=== PATIENT | female | born 1965 | race Caucasian/White ===

== ENCOUNTER 2017-06-20 17:14 | Emergency (ER) | payer OTHER ==
--- NOTE | 2017-06-20 18:29 | EDM.PDOC ---
ED HPI GENERAL MEDICAL PROBLEM - General Chief Complaint: Respiratory Problem Stated Complaint: PT HAS CONGESTION Time Seen by Provider: 06/20/17 18:20 Source of Information: Reports: Patient History Limitations: Reports: No Limitations - History of Present Illness INITIAL COMMENTS - FREE TEXT/NARRATIVE: HISTORY AND PHYSICAL: []52-year-old female presenting with cough for the last several weeks History of Present Illness: []Has worsened over the last few days Review of Systems: As per history of present illness and below otherwise all systems reviewed and negative. Past medical history: As per history of present illness and as reviewed below otherwise noncontributory. Surgical history: As per history of present illness and as reviewed below otherwise noncontributory. Social history: No reported history of drug or alcohol abuse. Family history: As per history of present illness and as reviewed below otherwise noncontributory. Physical exam: Alert and oriented female answering questions appropriately using full sentences but is a little short of breath and has coughing after speaking a long time HEENT: Atraumatic, normocehpalic, pupils reactive, negative for conjunctival pallor or scleral icterus, mucous membranes moist, throat clear, neck supple, nontender, trachea midline. Lungs: Crackles on auscultation, breath sounds equal bilaterally, chest non tender. Cough with deep breath. Heart: S1S2, regular, negative for clicks, rubs, or JVD. Abdomen: Soft, nondistended, nontender. Negative for masses or hepatossplenmegaly. Negative for costovertebral tenderness. Pelvis: Stable nontender. Genitourinary: Deferred. Rectal: Deferred Extremities: Atraumatic, negative for cords or calf pain. Neurovascular unremarkable. Neuro: Awake, alert, oriented. Cranial nerves II through XII unremarkable. Cerebellum unremarkable. Motor and sensory unremarkable throughout. Exam nonfocal. Discussed with patient that her negative examination and labs x-ray would indicate viral infection with bronchitis Diagnostics: [cbc, cmp, influenza chest x-ray] Therapeutics: [] Impression: [Acute bronchitis] Plan: [Discharged to home Symptomatic cares have been reviewed Lizbeth Diaz] Definitive disposition and diagnosis as appropriate pending reevaluation and review of above. Onset: Gradual Duration: Week(s): (4) Location: Reports: Head, Chest lungs Pain Score (Numeric/FACES): 10 - Related Data Allergies Allergy/AdvReac Type Severity Reaction Status Date / Time No Known Allergies Allergy Verified 06/20/17 17:54 Home Meds: Home Meds Benzonatate [Tessalon Perle] 100 mg PO QID PRN #40 capsule 06/20/17 [Rx] methylPREDNISolone [Medrol] 4 mg PO ASDIRECTED #1 dosepk 06/20/17 [Rx] Past Medical History - Past Health History Medical/Surgical History: Denies Medical/Surgical History - Infectious Disease History Infectious Disease History: Reports: Chicken Pox Social & Family History - Tobacco Use Smoking Status *Q: Never Smoker Second Hand Smoke Exposure: No - Caffeine Use Caffeine Use: Reports: None - Recreational Drug Use Recreational Drug Use: No ED ROS GENERAL - Review of Systems Review Of Systems: ROS reveals no pertinent complaints other than HPI. ED EXAM, GENERAL - Physical Exam Exam: See Below (See dictation) Course - Vital Signs Last Recorded V/S: Last Vital Signs Temp 36.4 C 06/20/17 18:00 Pulse 86 06/20/17 18:00 Resp 18 06/20/17 18:00 BP 133/73 06/20/17 18:00 Pulse Ox 96 06/20/17 18:00 - Orders/Labs/Meds Orders: Active Orders 24 hr Category Date Time Status Chest 2V [CR] Stat Exams 06/20/17 18:30 Taken Labs: Laboratory Tests 06/20/17 06/20/17 Range/Units 18:45 18:45 WBC 6.32 (4.0-11.0) K/uL RBC 4.60 (4.30-5.90) M/uL Hgb 13.9 (12.0-16.0) g/dL Hct 40.9 (36.0-46.0) % MCV 88.9 (80.0-98.0) fL MCH 30.2 (27.0-32.0) pg MCHC 34.0 (31.0-37.0) g/dL RDW Std Deviation 39.7 (28.0-62.0) fl RDW Coeff of Sylvia 12 (11.0-15.0) % Plt Count 209 (150-400) K/uL MPV 9.70 (7.40-12.00) fL Neut % (Auto) 59.8 (48.0-80.0) % Lymph % (Auto) 25.8 (16.0-40.0) % [place] % (Auto) 10.6 (0.0-15.0) % Eos % (Auto) 3.2 (0.0-7.0) % Baso % (Auto) 0.6 (0.0-1.5) % Neut # (Auto) 3.8 (1.4-5.7) K/uL Lymph # (Auto) 1.6 (0.6-2.4) K/uL [place] # (Auto) 0.7 (0.0-0.8) K/uL Eos # (Auto) 0.2 (0.0-0.7) K/uL Baso # (Auto) 0.0 (0.0-0.1) K/uL Nucleated RBC % 0.0 /100WBC Nucleated RBCs # 0 K/uL Sodium 139 (136-146) mmol/L Potassium 3.7 (3.5-5.1) mmol/L Chloride 106 (98-110) mmol/L Carbon Dioxide 23 (21-31) mmol/L BUN 12 (6.0-23.0) mg/dL Creatinine 0.8 (0.6-1.5) mg/dL Est Cr Clr Drug Dosing 71.84 mL/min Estimated GFR (MDRD) > 60.0 ml/min Glucose 96 (60-110) mg/dL Calcium 9.1 (8.8-10.8) mg/dL Total Bilirubin 0.8 (0.1-1.5) mg/dL AST 28 (5-40) IU/L ALT 27 (8-54) IU/L Alkaline Phosphatase 94 (40-150) Total Protein 7.3 (6.0-8.0) g/dL Albumin 4.5 (3.5-5.0) g/dL Globulin 2.8 (2.0-3.5) g/dL Albumin/Globulin Ratio 1.6 (1.3-2.8) Departure - Departure Time of Disposition: 19:50 Disposition: Home, Self-Care 01 Condition: Good Clinical Impression: Bronchitis - Discharge Information Prescriptions: Benzonatate [Tessalon Perle] 100 mg PO QID PRN #40 capsule PRN Reason: Cough methylPREDNISolone [Medrol] 4 mg PO ASDIRECTED #1 dosepk Referrals: PCP,None [Primary Care Provider] - Forms: ED Department Discharge - My Orders Last 24 Hours: My Active Orders 06/20/17 18:30 Chest 2V [CR] Stat - Assessment/Plan Last 24 Hours: My Active Orders 06/20/17 18:30 Chest 2V [CR] Stat
[2017-06-20 19:30] LABS: CHLORIDE,CL 106 mmol/L (98-110); SODIUM,NA 139 mmol/L (136-146)
--- NOTE | 2017-06-22 15:36 | CR ---
EXAM DATE: 06/20/17 PATIENT'S AGE: 52 Patient: BERNICE NIEVES Facility: [place], [place] Site . Site : 1965 Study: XRay Chest [id number]/23/2018 7:00:14 PM Ordering Physician: Doctor Ulloa Final Report: INDICATION: Cough for 1 month. TECHNIQUE: Chest radiograph 2 views COMPARISON: None FINDINGS: Cardiovascular and mediastinum: The heart silhouette is normal in size and morphology. The mediastinum is normal in appearance. Lungs and pleural spaces: Both lungs are unremarkable in appearance. No sign of pleural effusion seen. No pneumothorax is identified. Bones and soft tissues: No significant findings. IMPRESSION: 1. No acute cardiopulmonary disease is seen. Dictated by Matthew Grajeda MD @ 06/20/2017 7:34:38 PM Dictated by: Matthew Grajeda MD @ 06/20/2017 19:34:46 (Electronic Signature) Report Signed by Proxy. IRIS
== END 2017-06-20 20:03 | disposition home or self-care (01) ==
LOC: MW.ED 17:14
DX: J20.9 Acute bronchitis, unspecified (principal)
CPT/HCPCS: 36415; 71046; 71046-26; 80053; 85025; 87804; 99283

== ENCOUNTER 2017-07-09 13:17 | Emergency (ER) | payer OTHER ==
[2017-07-09] MEDS ORDERED: Sodium Chloride 0.9% 10 ML Syringe FLUSH PRN (14:32)
[2017-07-09] MEDS ORDERED: Sodium Chloride 0.9% 2.5 ML Syringe FLUSH PRN (14:32)
[2017-07-09] MEDS ORDERED: Ondansetron 4 MG/2 ML SDV IVPUSH ONE (14:36)
[2017-07-09] MEDS ORDERED: Morphine 4 MG/ML Syringe IVPUSH ONE (14:36)
[2017-07-09 15:28] LABS: CHLORIDE,CL 110 mmol/L (98-110); SODIUM,NA 139 mmol/L (136-146)
[2017-07-09] MEDS ORDERED: Iopamidol 755 MG/ML 200 ML Multipack Bottle IVPUSH STA (16:12)
--- NOTE | 2017-07-09 16:32 | EDM.PDOC ---
ED HPI GENERAL MEDICAL PROBLEM - General Chief Complaint: Back Pain or Injury Stated Complaint: LOWER BACK PAIN Time Seen by Provider: 07/09/17 14:06 Source of Information: Reports: Patient History Limitations: Reports: No Limitations - History of Present Illness INITIAL COMMENTS - FREE TEXT/NARRATIVE: History of present illness: []Patient fell backwards 2 days ago and landed on her trunk hitting her right flank. He is been having severe pain is edition and abdominal pain since. Vomiting, diarrhea, blood in your urine fevers or chills. She denies any chest pain or any other injuries Review of systems: As per history of present illness and below otherwise all systems reviewed and negative. Past medical history: As per history of present illness and as reviewed below otherwise noncontributory. Surgical history: As per history of present illness and as reviewed below otherwise noncontributory. Social history: No reported history of drug or alcohol abuse. Family history: As per history of present illness and as reviewed below otherwise noncontributory. Physical exam: General: Well developed, well nourished in NAD HEENT: Atraumatic, normocephalic, pupils reactive, negative for conjunctival pallor or scleral icterus, mucous membranes moist, throat clear, neck supple, nontender, trachea midline. Lungs: Clear to auscultation, breath sounds equal bilaterally, chest nontender. Heart: S1S2, regular, negative for clicks, rubs, or JVD. Abdomen: Soft, nondistended, nontender. Negative for masses or hepatosplenomegaly. Negative for costovertebral tenderness. Pelvis: Stable nontender. Genitourinary: Deferred. Rectal: Deferred. Extremities: Atraumatic, negative for cords or calf pain. Neurovascular unremarkable. Neuro: Awake, alert, oriented. Cranial nerves II through XII unremarkable. Cerebellum unremarkable. Motor and sensory unremarkable throughout. Exam nonfocal. Diagnostics: []CT abdomen pelvis negative for internal injury or retroperitoneal hematoma. Therapeutics: []Patient was given pain meds while in the ED with improvement Impression: []Right flank contusion Plan: []Tylenol Motrin, ice packs to flank follow-up with PMD return if symptoms worsen or change. Definitive disposition and diagnosis as appropriate pending reevaluation and review of above. Right Middle Back Pain Score (Numeric/FACES): 10 - Related Data Allergies Allergy/AdvReac Type Severity Reaction Status Date / Time No Known Allergies Allergy Verified 07/09/17 14:00 Home Meds: Home Meds traMADol HCl [Tramadol HCl] 50 mg PO Q6H PRN #16 tablet 07/09/17 [Rx] Past Medical History - Past Health History Medical/Surgical History: Denies Medical/Surgical History - Infectious Disease History Infectious Disease History: Reports: Chicken Pox, Measles, Mumps Social & Family History - Family History Family Medical History: Noncontributory - Tobacco Use Smoking Status *Q: Never Smoker Second Hand Smoke Exposure: No - Caffeine Use Caffeine Use: Reports: None - Recreational Drug Use Recreational Drug Use: No ED ROS GENERAL - Review of Systems Review Of Systems: See Below (See history of present illness) ED EXAM,LOWER BACK PAIN/INJURY - Physical Exam Exam: See Below (See history of present illness) Course - Vital Signs Last Recorded V/S: Last Vital Signs Temp 98.2 F 07/09/17 13:58 Pulse 64 07/09/17 17:30 Resp 18 07/09/17 17:30 BP 112/75 07/09/17 17:30 Pulse Ox 99 07/09/17 17:30 - Orders/Labs/Meds Orders: Active Orders 24 hr Category Date Time Status Abdomen Pelvis w Cont [CT] Stat Exams 07/09/17 14:33 Taken Saline Lock Insert [OM.PC] Stat Oth 07/09/17 14:32 Ordered Labs: Laboratory Tests 07/09/17 07/09/17 Range/Units 14:45 15:00 WBC 8.56 (4.0-11.0) K/uL RBC 4.40 (4.30-5.90) M/uL Hgb 13.3 (12.0-16.0) g/dL Hct 39.9 (36.0-46.0) % MCV 90.7 (80.0-98.0) fL MCH 30.2 (27.0-32.0) pg MCHC 33.3 (31.0-37.0) g/dL RDW Std Deviation 41.8 (28.0-62.0) fl RDW Coeff of Sylvia 13 (11.0-15.0) % Plt Count 346 (150-400) K/uL MPV 9.30 (7.40-12.00) fL Neut % (Auto) 57.3 (48.0-80.0) % Lymph % (Auto) 31.8 (16.0-40.0) % [place] % (Auto) 8.2 (0.0-15.0) % Eos % (Auto) 2.3 (0.0-7.0) % Baso % (Auto) 0.4 (0.0-1.5) % Neut # (Auto) 4.9 (1.4-5.7) K/uL Lymph # (Auto) 2.7 H (0.6-2.4) K/uL [place] # (Auto) 0.7 (0.0-0.8) K/uL Eos # (Auto) 0.2 (0.0-0.7) K/uL Baso # (Auto) 0.0 (0.0-0.1) K/uL Nucleated RBC % 0.0 /100WBC Nucleated RBCs # 0 K/uL Sodium 139 (136-146) mmol/L Potassium 4.2 (3.5-5.1) mmol/L Chloride 110 (98-110) mmol/L Carbon Dioxide 23 (21-31) mmol/L BUN 15 (6.0-23.0) mg/dL Creatinine 0.7 (0.6-1.5) mg/dL Est Cr Clr Drug Dosing 85.56 mL/min Estimated GFR (MDRD) > 60.0 ml/min Glucose 99 (60-110) mg/dL Calcium 8.9 (8.8-10.8) mg/dL Total Bilirubin 0.3 (0.1-1.5) mg/dL AST 30 (5-40) IU/L ALT 29 (8-54) IU/L Alkaline Phosphatase 107 (40-150) Total Protein 6.5 (6.0-8.0) g/dL Albumin 4.0 (3.5-5.0) g/dL Globulin 2.5 (2.0-3.5) g/dL Albumin/Globulin Ratio 1.6 (1.3-2.8) Meds: Medications Discontinued Medications Generic Name Dose Route Start Last Admin Trade Name Freq PRN Reason Stop Dose Admin Iopamidol 200 ml 07/09/17 16:12 07/09/17 16:12 Isovue Multipack-370 (76%) IVPUSH 07/09/17 16:13 100 ml ONETIME STA Administration Morphine Sulfate 4 mg 07/09/17 14:36 07/09/17 14:50 Morphine IVPUSH 07/09/17 14:37 4 mg ONETIME ONE Administration Ondansetron HCl 4 mg 07/09/17 14:36 07/09/17 14:47 Zofran IVPUSH 07/09/17 14:37 4 mg ONETIME ONE Administration Sodium Chloride 10 ml 07/09/17 14:32 07/09/17 14:52 Saline Flush FLUSH 10 ml ASDIRECTED PRN Administration Keep Vein Open Sodium Chloride 2.5 ml 07/09/17 14:32 Saline Flush FLUSH ASDIRECTED PRN Keep Vein Open Departure - Departure Time of Disposition: 16:30 Disposition: Home, Self-Care 01 Condition: Good Clinical Impression: Contusion, flank Qualifiers: Encounter type: initial encounter Qualified Code(s): S30.1XXA - Contusion of abdominal wall, initial encounter - Discharge Information Prescriptions: traMADol HCl [Tramadol HCl] 50 mg PO Q6H PRN #16 tablet PRN Reason: Pain Instructions: Contusion, [id number] Referrals: PCP,None [Primary Care Provider] - Forms: ED Department Discharge Additional Instructions: The following information is given to patients seen in the emergency department who are being discharged to home. This information is to outline your options for follow-up care. We provide all patients seen in our emergency department with a follow-up referral. The need for follow-up, as well as the timing and circumstances, are variable depending upon the specifics of your emergency department visit. If you don't have a primary care physician on staff, we will provide you with a referral. We always advise you to contact your personal physician following an emergency department visit to inform them of the circumstance of the visit and for follow-up with them and/or the need for any referrals to a consulting specialist. The emergency department will also refer you to a specialist when appropriate. This referral assures that you have the opportunity for follow-up care with a specialist. All of these measure are taken in an effort to provide you with optimal care, which includes your follow-up. Under all circumstances we always encourage you to contact your private physician who remains a resource for coordinating your care. When calling for follow-up care, please make the office aware that this follow-up is from your recent emergency room visit. If for any reason you are refused follow-up, please contact the [facility] Emergency Department at and asked to speak to the emergency department charge nurse. Tramadol for pain [facility] [address] [place] [id number] - My Orders Last 24 Hours: My Active Orders 07/09/17 14:32 Saline Lock Insert [OM.PC] Stat 07/09/17 14:33 Abdomen Pelvis w Cont [CT] Stat - Assessment/Plan Last 24 Hours: My Active Orders 07/09/17 14:32 Saline Lock Insert [OM.PC] Stat 07/09/17 14:33 Abdomen Pelvis w Cont [CT] Stat
--- NOTE | 2017-07-10 14:54 | CT ---
EXAM DATE: 07/09/17 PATIENT'S AGE: 52 Patient: BERNICE NIEVES Facility: [place], [place] Site . Site : 1965 Study: CT Abdomen/Pelvis [id number]/11/2018 3:50:59 PM Ordering Physician: Sharif Kee Final Report: INDICATION: Fall. Contusion right posterior back. TECHNIQUE: CT scan of the abdomen and pelvis with intravenous contrast. FINDINGS: Lung bases: Clear. Liver: Normal. Gallbladder: 1.9 centimeter peripheral calcified stone. Spleen: Normal. Pancreas adrenal glands and kidneys: Normal. Normal renal cortical enhancement. GI tract: Normal caliber. Moderate increased colonic stool volume. Pelvis: No free fluid. Uterus is normal size. Cyst in the right ovary 3.4 cm. Internal septation within the cyst. Small 1.5 cm follicular cyst in the left ovary. Urinary bladder normal. Retroperitoneum: No adenopathy or hematoma. Skeletal: Normal. No fractures. IMPRESSION: 1. No abdominal solid organ injury identified. 2. No acute skeletal abnormality or fracture. 3. Incidental gallstone. 4. Septated cyst in the right ovary and smaller left ovary, pelvic ultrasound could be considered for evaluation. Please note that all CT scans at this facility use dose modulation, iterative reconstruction, and/or weight-based dosing when appropriate to reduce radiation dose to as low as reasonably achievable. Dictated by Ananda Salamanca MD @ Jul 09 2017 3:55PM (Electronic Signature) Report Signed by Proxy. [facility]
== END 2017-07-09 17:30 | disposition home or self-care (01) ==
LOC: MW.ED 13:17
DX: S30.1XXA Contusion of abdominal wall, initial encounter (principal); W19.XXXA Unspecified fall, initial encounter
CPT/HCPCS: 36415; 74177; 80053; 85025; 96374; 96375; 99284; J2270; J2405; Q9967

== ENCOUNTER 2018-11-13 17:49 | Emergency (ER) | payer BC ==
--- NOTE | 2018-11-13 19:10 | CR ---
INDICATION: injury, pain TECHNIQUE: Right knee 3 views. COMPARISON: None. FINDINGS: Bones: Alignment is normal. No fractures or bone lesions. Joint spaces: Unremarkable. Soft tissues: Unremarkable. IMPRESSION: Unremarkable right knee. Dictated by: Rd Brown MD @ 11/13/2018 19:08:22 (Electronically Signed)
--- NOTE | 2018-11-13 19:14 | CR ---
INDICATION: Injury. FINDINGS: A single PA chest x-ray shows a normal cardiac silhouette. The lungs show no focal pulmonary opacities. Sharp pleural margins. No pneumothorax. Four views of the left ribs show no evidence of acute fracture. IMPRESSION: 1. No evidence of acute pulmonary abnormalities. 2. No left rib fractures identified. Dictated by Bhargav Kennedy MD @ 11/13/2018 7:12:27 PM Dictated by: Bhargav Kennedy MD @ 11/13/2018 19:12:35 (Electronically Signed)
[2018-11-13] MEDS ORDERED: Ketorolac 60 MG/2 ML SDV IM ONE (19:39)
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
== END 2018-11-13 20:15 | disposition home or self-care (01) ==
LOC: MW.ED 17:49
DX: S29.9XXA Unspecified injury of thorax, initial encounter (principal); S89.91XA Unspecified injury of right lower leg, initial encounter; W01.198A Fall on same level from slipping, tripping and stumbling with subsequent striking against other object, initial encounter
CPT/HCPCS: 71101; 73562; 96372; 99283; J1885